=== PATIENT | female | born 1965 | race Caucasian/White ===

== ENCOUNTER 2018-11-12 03:27 | Emergency (ER) | payer BC ==
[2018-11-12] MEDS ORDERED: Ketorolac INJ* 60 MG/2 ML VIAL IM ONE (03:46)
[2018-11-12] MEDS ORDERED: LORazepam INJ* 2 MG/ML 1 ML VIAL IM ONE (03:46)
--- NOTE | 2018-11-12 03:46 | ED ---
Throat Pain/Nasal Congestion - HPI Summary HPI Summary: This patient is a 52 year old F presenting to [facility] accompanied by with a chief complaint of L lower dental pain radiating to L ear that began yesterday. The patient rates the pain 7/10 in severity. Symptoms aggravated by swallowing. Symptoms alleviated by sitting up. - History of Current Complaint Chief Complaint: EDDentalPain Time Seen by Provider: 11/12/18 03:38 Hx Obtained From: Patient Onset/Duration: Sudden Onset, Lasting Days, Still Present Severity: Moderate Cough: None - Allergies/Home Medications Allergies/Adverse Reactions: Allergies Allergy/AdvReac Type Severity Reaction Status Date / Time MS Celecoxib [From Celebrex] Allergy Swelling Verified 11/12/18 03:33 Of Face,Lips,& Throat MS CI Pigment Blue 63 Allergy Swelling Verified 11/12/18 03:33 [From Cymbalta] MS Clarithromycin Allergy Unknown Verified 11/12/18 03:33 [From Biaxin] Reaction Details MS Duloxetine [From Cymbalta] Allergy Swelling Verified 11/12/18 03:33 MS Pregabalin [From Lyrica] Allergy Swelling Verified 11/12/18 03:33 MS Sulfa Antibiotics Allergy Eyes Verified 11/12/18 03:33 [Sulfa Antibiotics] Itchy/Swollen/Red/Watery PMH/Surg Hx/FS Hx/Imm Hx Previously Healthy: No Endocrine/Hematology History: Reports: Hx Thyroid Disease Denies: Hx Diabetes Cardiovascular History: Denies: Hx Hypertension, Hx Pacemaker/ICD Respiratory History: Reports: Hx Asthma Sensory History: Denies: Hx Hearing Aid Psychiatric History: Denies: Hx Panic Disorder - Cancer History Hx Chemotherapy: No Hx Radiation Therapy: No - Surgical History Surgery Procedure, Year, and Place: LT KNEE TORN MEDIAL MENISCUS X2 Infectious Disease History: No Infectious Disease History: Denies: Traveled Outside the [place] in Last 30 Days - Family History Known Family History: Positive: Unknown - Patient is adobted - Social History Occupation: Employed Full-time Lives: With Family Alcohol Use: None Hx Substance Use: No Substance Use Type: Reports: None Review of Systems Negative: Fever Positive: Dental Pain All Other Systems Reviewed And Are Negative: Yes Physical Exam - Summary Physical Exam Summary: VITAL SIGNS: Reviewed. GENERAL: Patient is a well-developed and nourished female who is lying comfortable in the stretcher. Patient is not in any acute respiratory distress. HEAD AND FACE: No signs of trauma. No ecchymosis, hematomas or skull depressions. No sinus tenderness. EYES: PERRLA, EOMI x 2, No injected conjunctiva, no nystagmus. EARS: Hearing grossly intact. Ear canals and tympanic membranes are within normal limits. MOUTH: Oropharynx within normal limits. Tenderness over the right TMJ. Able to bite on the tongue depressor but she is pain. No salivation. She is able to talk. NECK: Supple, trachea is midline, no adenopathy, no JVD, no carotid bruit, no c- spine tenderness, neck with full ROM. CHEST: Symmetric, no tenderness at palpation LUNGS: Clear to auscultation bilaterally. No wheezing or crackles. CVS: Regular rate and rhythm, S1 and S2 present, no murmurs or gallops appreciated. ABDOMEN: Soft, non-tender. No signs of distention. No rebound no guarding, and no masses palpated. Bowel sounds are normal. EXTREMITIES: FROM in all major joints, no edema, no cyanosis or clubbing. NEURO: Alert and oriented x 3. No acute neurological deficits. Speech is normal and follows commands. SKIN: Dry and warm Triage Information Reviewed: Yes Vital Signs On Initial Exam: Initial Vitals Temp Pulse Resp BP Pulse Ox 97.8 F 86 18 115/72 98 11/12/18 03:31 11/12/18 03:31 11/12/18 03:31 11/12/18 03:31 11/12/18 03:31 Vital Signs Reviewed: Yes Diagnostics - Vital Signs Vital Signs Temp Pulse Resp BP Pulse Ox 11/12/18 03:31 97.8 F 86 18 115/72 98 - Laboratory Lab Statement: Any lab studies that have been ordered have been reviewed, and results considered in the medical decision making process. - CT Maxillofacial CT CT Interpretation Completed By: Radiologist Summary of CT Findings: Maxillofacial CT reveals, per radiologist, 1. Degenerative changes of the TMJs with slight asymmetric anterior translation of the right mandibular condyle compared to the left. 2. Absence of the crown of tooth #19. 3. Minimal ethmoid sinus disease. 4. Otherwise negative CT facial bones. ED physician has reviewed this radiology report. EENT Course/Dx - Course Course Of Treatment: This patient is a 52 year old F presenting to [facility] accompanied by with a chief complaint of L lower dental pain radiating to L ear that began yesterday. Physical Exam Findings: Tenderness over the right TNJ. Able to bite on the tongue depressor but she is pain. No salivation. She is able to talk. Maxillofacial CT reveals, per radiologist, 1. Degenerative changes of the TMJs with slight asymmetric anterior translation of the right mandibular condyle compared to the left. 2. Absence of the crown of tooth #19. 3. Minimal ethmoid sinus disease. 4. Otherwise negative CT facial bones. In the ED course the patient was given Toradol and Ativan. Patient will be discharged with follow up from PCP. The patient is agreeable with this plan. - Diagnoses Provider Diagnoses: TMJ arthritis Discharge - Sign-Out/Discharge Documenting (check all that apply): Patient Departure - Discharge home - Discharge Plan Condition: Stable Disposition: HOME Prescriptions: Ibuprofen TAB* [Motrin TAB* 800 MG] 800 mg PO Q6H PRN #30 tab PRN Reason: Pain oxyCODONE/Acetamin 5/325 MG* [Percocet 5/325 TAB*] 1 tab PO Q6H PRN #14 tab MDD 4 PRN Reason: Pain Patient Education Materials: Arthritis (ED) Referrals: Eil Vallejo MD [Primary Care Provider] - 2 Days Additional Instructions: RETURN TO THE EMERGENCY DEPARTMENT FOR NEW OR WORSENING SYMPTOMS FOLLOW UP WITH A TMJ DOCTOR IN 2-3 DAYS - Attestation Statements Document Initiated by Scribe: Yes Documenting Scribe: Nicolle Lester Provider For Whom Scribe is Documenting (Include Credential): Dr. Rhys Martinez MD Scribe Attestation: Nicolle Schrader scribed for Dr. Rhys Martinez MD on 11/12/18 at 0515. Status of Scribe Document: Ready
[2018-11-12 05:30] VITALS: BP 117/71
== END 2018-11-12 05:33 | disposition home or self-care (01) ==
LOC: ED 03:27
DX: M26.69 Other specified disorders of temporomandibular joint (principal); J32.2 Chronic ethmoidal sinusitis; Z88.1 Allergy status to other antibiotic agents; Z88.2 Allergy status to sulfonamides; Z88.8 Allergy status to other drugs, medicaments and biological substances
CPT/HCPCS: 70486; 96372; 99282; J1885; J2060